=== PATIENT | female | born 1990 | race Caucasian/White ===

== ENCOUNTER 2019-07-26 17:41 | Inpatient (IN) | payer OTHER ==
[~2019-07-26] VITALS: Ht 165.1 cm; Wt 114.0 kg
[2019-08-02] MEDS ORDERED: PENICILLIN GK 2,500,000 UNITS in DEXTROSE 5% 100 ML IVPB SCH (03:30)
[2019-08-02] MEDS ORDERED: OXYTOCIN 30U/ 0.9% NaCL 500ML 500 ML IV ONE (23:01)
[2019-08-02] MEDS: D5%-LACTATED RINGERS 1,000 ML IV SCH (23:01)
[2019-08-02] MEDS ORDERED: FENTANYL PF 100 MCG/2ML IVPush PRN (23:30)
[2019-08-02] MEDS ORDERED: PENICILLIN GK 5,000,000 UNITS in DEXTROSE 5% 100 ML IVPB ONE (23:30)
[2019-08-02] MEDS ORDERED: TERBUTALINE 1 MG/ML, 1ML IVPush PRN (23:30)
[2019-08-02] MEDS ORDERED: SODIUM CITRATE/CITRIC ACID 30 ML UDC PO PRN (23:30)
[2019-08-02] MEDS ORDERED: ONDANSETRON 2MG/ML, 2ML IVPush PRN (23:30)
[2019-08-02] MEDS ORDERED: METOCLOPRAMIDE 5 MG/ML, 2ML IVPush PRN (23:30)
[2019-08-02] MEDS ORDERED: FENTANYL PF 100 MCG/2ML IV PRN (23:30)
[2019-08-02] MEDS ORDERED: TERBUTALINE 1 MG/ML, 1ML SQ PRN (23:30)
[2019-08-02 23:43] LABS: BASOPHILS # (AUTO) 0.06 x10^3/uL (0-0.1); BASOPHILS % (AUTO) 1 % (0-1); EOSINOPHILS # (AUTO) 0.16 x10^3/uL (0-0.4); EOSINOPHILS % (AUTO) 2 % (1-7); LYMPHOCYTES # (AUTO) 2.57 x10^3/uL (1-3.4); LYMPHOCYTES % (AUTO) 25 % (22-44); MD NO; MEAN CORPUSCULAR HEMOGLOBIN 31.4 pg (27.0-34.8); MEAN CORPUSCULAR VOLUME 95.2 fL (80-100); MONOCYTES # (AUTO) 0.79 x10^3/uL (0.2-0.8); MONOCYTES % (AUTO) 8 % (2-9); NEUTROPHILS # (AUTO) 6.69 x10^3/uL (1.8-6.8); NEUTROPHILS % (AUTO) 65 % (42-75); PLATELET COUNT 255 x10^3/uL (130-400); RED BLOOD COUNT 4.09 x10^6/uL (3.82-5.3); RED CELL DISTRIBUTION WIDTH 13.7 % (9.6-15.2)
[2019-08-02] MEDS ORDERED: PLEASE ENTER HEIGHT AND WEIGHT MC SCH (23:45)
[2019-08-03] MEDS ORDERED: MISOPROSTOL 25 MCG TABLET ONE ×3 (00:07→09:00)
[2019-08-03] MEDS: MISOPROSTOL 25 MCG TABLET VG PRN ×3 (00:30→09:08)
[2019-08-03] MEDS: LACTATED RINGERS 1,000 ML IV SCH ×4 (00:36→19:57)
[2019-08-03] MEDS ORDERED: NEWBORN KIT ONE (01:36)
[2019-08-03] MEDS ORDERED: OXYTOCIN 30U/ 0.9% NaCL 500ML 500 ML ONE ×2 (01:36→19:50)
[2019-08-03] MEDS ORDERED: MISOPROSTOL 200 MCG TABLET ONE (01:36)
[2019-08-03] MEDS ORDERED: LIDOCAINE 1%, 20ML ONE (01:36)
[2019-08-03] MEDS: PENICILLIN GK 2,500,000 UNITS in DEXTROSE 5% 100 ML IVPB SCH ×5 (03:30→21:30)
[2019-08-03] MEDS: D5%-LACTATED RINGERS 1,000 ML IV SCH ×3 (07:01→23:01)
[2019-08-03] MEDS ORDERED: OXYTOCIN 30U/ 0.9% NaCL 500ML 500 ML IV PRN (09:22)
[2019-08-03] MEDS ORDERED: FENTANYL/BUPIV./NS/PF 250 ML EPIDCONT SCH ×2 (10:20→11:57)
[2019-08-03] MEDS ORDERED: FENTANYL PF 500 MCG, BUPIVACAINE/PF 0.5%, 30ML 62.5 ML in SODIUM CHLORIDE 0.9% 177.5 ML EPIDCONT SCH (10:30)
[2019-08-03] MEDS ORDERED: FENTANYL PF 100 MCG/2ML ONE (10:43)
[2019-08-03] MEDS ORDERED: BUPIVACAINE 0.25% ONE (11:35)
[2019-08-03] MEDS ORDERED: ONDANSETRON 2MG/ML, 2ML IVPush PRN (12:00)
[2019-08-03] MEDS ORDERED: NALOXONE 0.4 MG/ML, 1ML IVPush PRN (12:00)
[2019-08-03] MEDS ORDERED: EPHEDRINE 50 MG/ML, 1ML IVPush PRN (12:00)
[2019-08-03] MEDS ORDERED: LACTATED RINGERS 1,000 ML IVBOLUS PRN (12:00)
[2019-08-03] MEDS ORDERED: DIPHENHYDRAMINE 50 MG/ML, 1ML IVPush PRN (12:00)
[2019-08-03] MEDS ORDERED: OXYTOCIN 30U/ 0.9% NaCL 500ML 500 ML IV SCH (19:40)
[2019-08-03] MEDS ORDERED: IBUPROFEN 600 MG TABLET PO PRN (20:00)
[2019-08-03] MEDS ORDERED: CARBOPROST TROMETHAMINE 250 MCG/ML, 1ML IM PRN (20:00)
[2019-08-03] MEDS ORDERED: METHYLERGONOVINE 0.2 MG/ML IM PRN (20:00)
[2019-08-03] MEDS ORDERED: ACETAMINOPHEN 325 MG TABLET PO PRN (20:00)
[2019-08-03] MEDS ORDERED: OXYcodone/APAP 5/325MG TABLET PO PRN ×2 (20:00)
[2019-08-03] MEDS ORDERED: SIMETHICONE 80 MG CHEW TAB PO PRN (20:00)
[2019-08-03] MEDS ORDERED: MISOPROSTOL 200 MCG TABLET PR PRN (20:00)
[2019-08-03] MEDS ORDERED: DOCUSATE 100 MG CAPSULE PO PRN (20:00)
[2019-08-03 21:50] VITALS: BP 120/71
[2019-08-04] VITALS: BP 132/78
[2019-08-04 01:16] LABS: BASOPHILS # (AUTO) 0.01 x10^3/uL (0-0.1); BASOPHILS % (AUTO) 0 % (0-1); EOSINOPHILS # (AUTO) 0.07 x10^3/uL (0-0.4); EOSINOPHILS % (AUTO) 0 % (1-7); LYMPHOCYTES # (AUTO) 1.88 x10^3/uL (1-3.4); LYMPHOCYTES % (AUTO) 12 % (22-44); MD NO; MEAN CORPUSCULAR HEMOGLOBIN 31.4 pg (27.0-34.8); MEAN CORPUSCULAR HGB CONC 33.5 g/dL (32.4-35.8); MEAN CORPUSCULAR VOLUME 93.6 fL (80-100); MEAN PLATELET VOLUME 8.6 fL (7.4-10.4); MONOCYTES # (AUTO) 0.55 x10^3/uL (0.2-0.8); MONOCYTES % (AUTO) 3 % (2-9); NEUTROPHILS # (AUTO) 13.46 x10^3/uL (1.8-6.8); NEUTROPHILS % (AUTO) 84 % (42-75); PLATELET COUNT 235 x10^3/uL (130-400); RED BLOOD COUNT 4.04 x10^6/uL (3.82-5.3)
[2019-08-04 04:33] VITALS: BP 107/76
[2019-08-04 08:00] VITALS: BP 126/76
[2019-08-04 13:00] VITALS: BP 116/73
[2019-08-04 20:00] VITALS: BP 132/83
[2019-08-05 07:10] VITALS: BP 114/74
[2019-08-05] MEDS: PRENATAL VIT/IRON/FA 1 EACH TABLET PO SCH ×2 (08:52→09:00)
[2019-08-05] MEDS ORDERED: IBUP-1222 PO (10:57)
== END 2019-08-05 12:05 | disposition home or self-care (01) | DRG 807 ==
LOC: LDIP 08-02 21:51 → 2NW 08-03 21:30
PROVIDERS: ADMIT Obstetrics & Gynecology Maternal & Fetal Medicine; ATTEND Obstetrics & Gynecology Maternal & Fetal Medicine
PROC: 10E0XZZ Delivery of Products of Conception, External Approach (ICD-10-PCS; principal; 2019-08-03)
PROC: 0KQM0ZZ Repair Perineum Muscle, Open Approach (ICD-10-PCS; 2019-08-03)
PROC: 10907ZC Drainage of Amniotic Fluid, Therapeutic from Products of Conception, Via Natural or Artificial Opening (ICD-10-PCS; 2019-08-03)
PROC: 3E0R3BZ Introduction of Anesthetic Agent into Spinal Canal, Percutaneous Approach (ICD-10-PCS; 2019-08-03)
PROC: 00HU33Z Insertion of Infusion Device into Spinal Canal, Percutaneous Approach (ICD-10-PCS; 2019-08-03)
DX: O48.0 Post-term pregnancy (principal); Z37.0 Single live birth; O70.1 Second degree perineal laceration during delivery; Z3A.41 41 weeks gestation of pregnancy
CPT/HCPCS: 36415; J3490; S0020; 85025; 86850; 86900; G0378; J2540; J3010; J2590; J7050; J7120